=== PATIENT | male | born 1970 | race Caucasian/White ===

== ENCOUNTER 2021-04-29 08:51 | Emergency (ER) | payer OTHER ==
[~2021-04-29] VITALS: Ht 167.6 cm; Wt 106.8 kg
[2021-04-29 09:01] VITALS: TEMP 9
[2021-04-29] MEDS ORDERED: TENORMIN 2525 MG/TAB PO (09:07)
[2021-04-29] MEDS ORDERED: LIPITOR 10MG10 MG (09:08)
[2021-04-29] MEDS ORDERED: PRILOSEC 20MG20 MG (09:09)
[2021-04-29] MEDS ORDERED: VIVLODEX5 MG (09:09)
[2021-04-29] MEDS ORDERED: LEVOXYL0.025 MG (09:10)
[2021-04-29 09:15] LABS: HEMATOCRIT 45.9 % (42.0-52.0); HEMOGLOBIN 15.5 g/dl (13.5-18.0); MEAN CELL VOLUME 91 fl (80.0-100.0); MEAN CORPUSCULAR HEMOGLOBIN 31 pg (27.0-31.0); MEAN CORPUSCULAR HGB CONC 34 g/dl (33.0-37.0); PLATELET COUNT 194 K/mm3 (130-400); RED BLOOD COUNT 5.02 M/mm3 (4.20-5.60)
[2021-04-29 09:21] LABS: INR 1.1 (0.8-3.0); PROTHROMBIN TIME 12.1 SECONDS (9.7-12.8)
[2021-04-29 09:23] LABS: ALANINE AMINOTRANSFERASE 100 U/L (4-49); ALBUMIN 4.6 gm/dL (3.5-5.0); ALKALINE PHOSPHATASE 57 U/L (50-136); ANION GAP 11 mmol/L (7-16); AST,SGOT 75 U/L (15-37); BILIRUBIN,TOTAL 0.3 mg/dL (0.0-1.0); BLOOD UREA NITROGEN 15 mg/dL (9-20); CALCIUM 9.2 mg/dL (8.4-10.2); CARBON DIOXIDE 25 mmol/L (22-30); CHLORIDE 104 mmol/L (98-107); CREATININE, serum 0.82 (0.66-1.25); GLUCOSE 122 mg/dL (74-106); PARTIAL THROMBOPLASTIN TIME 35.6 SECONDS (26.0-37.0); POTASSIUM 3.8 mmol/L (3.4-5.0); SODIUM 140 mmol/L (137-145); TOTAL PROTEIN 7.9 gm/dL (6.4-8.2)
[2021-04-29 09:37] LABS: TROPONIN-I < 0.012 ng/mL (0.000-0.035)
[2021-04-29 10:20] LABS: EOSINOPHIL 3 % (0-4); LYMPHOCYTE 40 % (20.0-51.0); NEUTROPHILS 43 % (42.0-75.2); PLATELET ESTIMATE NORMAL (NORMAL)
[2021-04-29 12:26] VITALS: BP 110/68; PULSE 70
== END 2021-04-29 12:30 | disposition home or self-care (01) ==
LOC: COL.ER 08:51
PROVIDERS: Family Medicine
DX: E83.42 Hypomagnesemia (principal); R07.9 Chest pain, unspecified; I10 Essential (primary) hypertension; K21.9 Gastro-esophageal reflux disease without esophagitis; F17.200 Nicotine dependence, unspecified, uncomplicated; Z79.899 Other long term (current) drug therapy
CPT/HCPCS: J2060; J3475